=== PATIENT | female | born 1980 | race Caucasian/White ===

== ENCOUNTER 2018-05-29 11:44 | Emergency (ER) | payer OTHER ==
[~2018-05-29] VITALS: Ht 167.6 cm; Wt 66.7 kg
[2018-05-29 11:49] VITALS: Ht 167.6 cm; Wt 66.7 kg
[2018-05-29 12:32] VITALS: BP 113/73
== END 2018-05-29 12:43 | disposition home or self-care (01) ==
LOC: ED 11:44
DX: B34.9 Viral infection, unspecified (principal)
CPT/HCPCS: 87804